=== PATIENT | male | born 1940 | race Caucasian/White ===

== ENCOUNTER 2020-01-24 22:03 | Inpatient (IN) | payer MEDICARE, OTHER ==
[~2020-01-24] VITALS: Ht 165.1 cm; Wt 77.6 kg
[2020-01-24] MEDS ORDERED: CALC0.253 PO (22:24)
[2020-01-24] MEDS ORDERED: FINA5TAB11 PO (22:24)
[2020-01-24] MEDS ORDERED: ASPI-605 PO (22:24)
[2020-01-24] MEDS ORDERED: AMLO2.5T4 PO (22:24)
[2020-01-24] MEDS ORDERED: ISOS10TA2 PO (22:24)
[2020-01-24] MEDS ORDERED: ESOM20CA PO (22:24)
[2020-01-24] MEDS ORDERED: CLONIDINE HCL 0.1 MG TABLET ONE ×2 (22:28→23:11)
[2020-01-24] MEDS ORDERED: CLONIDINE HCL 0.1 MG TABLET PO ONE ×2 (22:30→23:15)
[2020-01-24] MEDS ORDERED: LORAZEPAM 1 MG TABLET ONE (23:24)
[2020-01-24] MEDS ORDERED: LORAZEPAM 0.5 MG TABLET PO ONE (23:30)
[2020-01-25 00:30] VITALS: BP 131/69
[2020-01-25] MEDS ORDERED: LORAZEPAM 0.5 MG TABLET PO PRN (02:15)
[2020-01-25] MEDS ORDERED: MAG HYDROX/AL HYDROX/SIMETH 30 ML LIQUID UDC PO PRN (02:15)
[2020-01-25] MEDS ORDERED: MAGNESIUM HYDROXIDE 30 ML LIQUID UDC PO PRN (02:15)
[2020-01-25 07:14] VITALS: BP 156/77
[2020-01-25] MEDS: PANTOPRAZOLE SODIUM 40 MG TABLET.DR PO SCH (08:09)
[2020-01-25] MEDS: AMLODIPINE 2.5 MG TABLET PO SCH (08:09)
[2020-01-25] MEDS: FINASTERIDE 5 MG TABLET PO SCH (08:09)
[2020-01-25] MEDS: ASPIRIN EC 81 MG TABLET.DR PO SCH (08:09)
[2020-01-25] MEDS: CALCITRIOL 0.25 MCG CAPSULE PO SCH (09:45)
[2020-01-25 10:03] VITALS: BP 144/77
[2020-01-25] MEDS ORDERED: CLONAZEPAM 0.5 MG TABLET PO PRN (12:45)
[2020-01-25] MEDS: FLUOXETINE HCL 20 MG CAPSULE PO SCH (13:27)
[2020-01-25] MEDS: ISOSORBIDE DINITRATE 10 MG TABLET PO SCH ×2 (13:29→22:28)
[2020-01-25 13:36] LABS: *BILIRUBIN,URIN NEGATIVE (NEGATIVE); *BLOOD, URINE NEGATIVE (NEGATIVE); *CLARITY,URINE CLEAR (CLEAR); *COLOR,URINE YELLOW (YELLOW); *KETONES,URINE NEGATIVE (NEGATIVE); *UROBILINOGEN,URINE 0.2 E.U./dl (NORMAL); LEUKOCYTE ESTERASE ,URINE NEGATIVE (NEGATIVE); NITRITE, URINE NEGATIVE (NEGATIVE); PH,URINE 5.5 (5.0-8.0); UGLUCOSE NEGATIVE (NEGATIVE)
[2020-01-25 14:14] LABS: *CREATININE,URINE 241.1 mg/dL (30-125)
[2020-01-25 14:56] VITALS: BP 144/65
[2020-01-25] MEDS: ACETAMINOPHEN 325 MG TABLET PO PRN (16:09)
[2020-01-25 20:00] VITALS: BP 129/74
[2020-01-25] MEDS: MIRTAZAPINE 15 MG TABLET PO SCH (20:41)
[2020-01-25] MEDS: LORAZEPAM 0.5 MG TABLET PO PRN (22:28)
[2020-01-25 22:41] LABS: BACTERIA,URINE RARE /HPF (NONE SEEN); RBC,URINE 0-3 /HPF (0-3)
[2020-01-26 04:00] VITALS: BP 108/54
[2020-01-26 06:33] LABS: BASOPHILS # (AUTO) 0.1 K/uL (0.0-8.0)
[2020-01-26 06:47] LABS: BASOPHILS % (AUTO) 0.8 % (0.0-2.0); EOSINOPHILS # (AUTO) 0.5 K/uL (0.0-0.7); EOSINOPHILS % (AUTO) 5.2 % (0.0-7.0); HEMATOCRIT 34.9 % (36.7-47.1); HEMOGLOBIN 11.8 g/dL (12.5-16.3); LYMPHOCYTES # (AUTO) 2.1 K/uL (20.0-40.0); LYMPHOCYTES % (AUTO) 22.7 % (20.5-51.5); MEAN CORPUSCULAR HEMOGLOBIN 30.9 uug (23.8-33.4); MEAN CORPUSCULAR HGB CONC 34 g/dL (32.5-36.3); MEAN CORPUSCULAR VOLUME 91.2 fL (73.0-96.2); MONOCYTES # (AUTO) 0.7 K/uL (2.0-10.0); MONOCYTES % (AUTO) 7.6 % (0.0-11.0); NEUTROPHILS # (AUTO) 5.9 K/uL (1.8-8.9); NEUTROPHILS % (AUTO) 63.7 % (38.5-71.5); PLATELET COUNT (AUTO) 210 K/uL (152-348); RED BLOOD CELL COUNT(AUTO) 3.82 MIL/uL (4.06-5.63); WHITE BLOOD COUNT (AUTO) 9.3 K/uL (3.6-10.2)
[2020-01-26] MEDS: ISOSORBIDE DINITRATE 10 MG TABLET PO SCH ×3 (06:48→20:50)
[2020-01-26 07:00] LABS: CHOLESTEROL 142 mg/dL (<200); HDL CHOLESTEROL 25 mg/dL (40-60); TRIGLYCERIDES 167 MG/DL (30-150)
[2020-01-26 07:03] LABS: THYROID STIMULATING HORMONE 2.959 mIU/mL (0.358-3.740)
[2020-01-26 07:05] LABS: ALANINE AMINOTRANSFERASE 30 U/L (16-63); ALKALINE PHOSPHATASE 75 U/L (50-136); ASPARTATE AMINOTRANSFERASE 18 U/L (15-37); BILIRUBIN,TOTAL 0.3 mg/dL (0.2-1.0); CARBON DIOXIDE 28 mmol/L (21-32); CHLORIDE 107 mmol/L (98-107); CREATINE KINASE, TOTAL 111 U/L (39-308); CREATININE 2.2 mg/dL (0.6-1.3); GLUCOSE 102 mg/dL (74-106); MAGNESIUM 2.3 mg/dL (1.8-2.4); POTASSIUM 4.2 mmol/L (3.5-5.1); TOTAL PROTEIN, SERUM 6.6 g/dL (6.4-8.2); UREA NITROGEN, BLOOD 30 mg/dL (7-18)
[2020-01-26] MEDS: FINASTERIDE 5 MG TABLET PO SCH (08:27)
[2020-01-26] MEDS: PANTOPRAZOLE SODIUM 40 MG TABLET.DR PO SCH (08:27)
[2020-01-26] MEDS: ASPIRIN EC 81 MG TABLET.DR PO SCH (08:27)
[2020-01-26] MEDS: AMLODIPINE 2.5 MG TABLET PO SCH (09:36)
[2020-01-26 13:00] VITALS: BP 145/75
[2020-01-26] MEDS: FLUOXETINE HCL 20 MG CAPSULE PO SCH (13:17)
[2020-01-26 16:00] VITALS: BP 145/75
[2020-01-26] MEDS ORDERED: FLUOXETINE HCL 20 MG CAPSULE PO SCH (17:00)
[2020-01-26 20:00] VITALS: BP 156/80
[2020-01-26] MEDS: MIRTAZAPINE 15 MG TABLET PO SCH (20:49)
[2020-01-26] MEDS: ATORVASTATIN 10 MG TABLET PO SCH (20:50)
[2020-01-27] MEDS: PANTOPRAZOLE SODIUM 40 MG TABLET.DR PO SCH (06:08)
[2020-01-27] MEDS: ISOSORBIDE DINITRATE 10 MG TABLET PO SCH ×4 (06:19→21:26)
[2020-01-27] MEDS: LORAZEPAM 0.5 MG TABLET PO PRN ×2 (06:36→22:46)
[2020-01-27 06:39] LABS: BASOPHILS # (AUTO) 0.1 K/uL (0.0-8.0); BASOPHILS % (AUTO) 0.9 % (0.0-2.0); EOSINOPHILS # (AUTO) 0.4 K/uL (0.0-0.7); EOSINOPHILS % (AUTO) 4.8 % (0.0-7.0); HEMATOCRIT 35.3 % (36.7-47.1); HEMOGLOBIN 12.1 g/dL (12.5-16.3); LYMPHOCYTES # (AUTO) 1.6 K/uL (20.0-40.0); LYMPHOCYTES % (AUTO) 18.9 % (20.5-51.5); MEAN CORPUSCULAR HEMOGLOBIN 31.3 uug (23.8-33.4); MEAN CORPUSCULAR HGB CONC 34 g/dL (32.5-36.3); MEAN CORPUSCULAR VOLUME 91.6 fL (73.0-96.2); MONOCYTES # (AUTO) 0.6 K/uL (2.0-10.0); NEUTROPHILS # (AUTO) 5.8 K/uL (1.8-8.9); NEUTROPHILS % (AUTO) 68.4 % (38.5-71.5); PLATELET COUNT (AUTO) 224 K/uL (152-348); RED BLOOD CELL COUNT(AUTO) 3.86 MIL/uL (4.06-5.63); WHITE BLOOD COUNT (AUTO) 8.5 K/uL (3.6-10.2)
[2020-01-27 06:58] LABS: ALANINE AMINOTRANSFERASE 31 U/L (16-63); ALKALINE PHOSPHATASE 93 U/L (50-136); ASPARTATE AMINOTRANSFERASE 20 U/L (15-37); BILIRUBIN,TOTAL 0.4 mg/dL (0.2-1.0); CARBON DIOXIDE 27 mmol/L (21-32); CHLORIDE 107 mmol/L (98-107); GLUCOSE 108 mg/dL (74-106); MAGNESIUM 2.1 mg/dL (1.8-2.4); PHOSPHOROUS 3.6 mg/dL (2.5-4.9); POTASSIUM 4.2 mmol/L (3.5-5.1); TOTAL PROTEIN, SERUM 6.6 g/dL (6.4-8.2); UREA NITROGEN, BLOOD 23 mg/dL (7-18)
[2020-01-27 07:30] VITALS: BP 126/75
[2020-01-27] MEDS: FINASTERIDE 5 MG TABLET PO SCH (08:18)
[2020-01-27] MEDS: AMLODIPINE 2.5 MG TABLET PO SCH (08:18)
[2020-01-27] MEDS: ASPIRIN EC 81 MG TABLET.DR PO SCH (08:18)
[2020-01-27] MEDS: FLUOXETINE HCL 20 MG CAPSULE PO SCH (12:15)
[2020-01-27 15:43] VITALS: BP 152/79
[2020-01-27] MEDS: ACETAMINOPHEN 325 MG TABLET PO PRN ×2 (17:56→23:42)
[2020-01-27 20:59] VITALS: BP 159/86
[2020-01-27] MEDS: MIRTAZAPINE 15 MG TABLET PO SCH (21:25)
[2020-01-27] MEDS: ATORVASTATIN 10 MG TABLET PO SCH (21:26)
[2020-01-27] MEDS: TEMAZEPAM 7.5 MG CAPSULE PO PRN (21:26)
[2020-01-28 06:20] VITALS: BP 181/84
[2020-01-28] MEDS: ISOSORBIDE DINITRATE 10 MG TABLET PO SCH ×3 (06:24→22:04)
[2020-01-28] MEDS: PANTOPRAZOLE SODIUM 40 MG TABLET.DR PO SCH (06:24)
[2020-01-28 07:30] VITALS: BP 119/71
[2020-01-28 08:00] VITALS: BP 119/71
[2020-01-28] MEDS: ASPIRIN EC 81 MG TABLET.DR PO SCH (09:54)
[2020-01-28] MEDS: FINASTERIDE 5 MG TABLET PO SCH (09:54)
[2020-01-28] MEDS: AMLODIPINE 2.5 MG TABLET PO SCH (09:55)
[2020-01-28 14:34] VITALS: BP 186/94
[2020-01-28] MEDS: FLUOXETINE HCL 20 MG CAPSULE PO SCH (14:34)
[2020-01-28 16:00] VITALS: BP 147/89
[2020-01-28] MEDS: CLONIDINE HCL 0.1 MG TABLET PO PRN (19:50)
[2020-01-28] MEDS: LORAZEPAM 0.5 MG TABLET PO PRN (19:58)
[2020-01-28] MEDS: MIRTAZAPINE 15 MG TABLET PO SCH (20:13)
[2020-01-28] MEDS: ATORVASTATIN 10 MG TABLET PO SCH (20:14)
[2020-01-28] MEDS: TEMAZEPAM 7.5 MG CAPSULE PO PRN (20:59)
[2020-01-28 21:10] VITALS: BP 168/71
[2020-01-29] MEDS: ISOSORBIDE DINITRATE 10 MG TABLET PO SCH ×3 (06:15→21:15)
[2020-01-29] MEDS: PANTOPRAZOLE SODIUM 40 MG TABLET.DR PO SCH (06:15)
[2020-01-29 07:30] VITALS: BP 116/67
[2020-01-29] MEDS: ASPIRIN EC 81 MG TABLET.DR PO SCH (09:33)
[2020-01-29] MEDS: FINASTERIDE 5 MG TABLET PO SCH (09:33)
[2020-01-29] MEDS: AMLODIPINE 2.5 MG TABLET PO SCH (09:34)
[2020-01-29] MEDS: FLUOXETINE HCL 20 MG CAPSULE PO SCH (12:18)
[2020-01-29 15:55] VITALS: BP 150/83
[2020-01-29] MEDS: LORAZEPAM 0.5 MG TABLET PO PRN (19:50)
[2020-01-29] MEDS: CLONIDINE HCL 0.1 MG TABLET PO PRN (19:53)
[2020-01-29] MEDS: ATORVASTATIN 10 MG TABLET PO SCH (20:10)
[2020-01-29] MEDS: MIRTAZAPINE 15 MG TABLET PO SCH (20:10)
[2020-01-29 20:45] VITALS: BP 199/101
[2020-01-29] MEDS ORDERED: MIRTAZAPINE 15 MG TABLET PO SCH (21:00)
[2020-01-29] MEDS: TEMAZEPAM 7.5 MG CAPSULE PO PRN (21:16)
[2020-01-30] MEDS: LORAZEPAM 0.5 MG TABLET PO PRN ×3 (04:59→19:44)
[2020-01-30] MEDS: ISOSORBIDE DINITRATE 10 MG TABLET PO SCH ×3 (05:01→22:15)
[2020-01-30] MEDS: PANTOPRAZOLE SODIUM 40 MG TABLET.DR PO SCH (06:00)
[2020-01-30 06:45] LABS: BASOPHILS # (AUTO) 0.1 K/uL (0.0-8.0); EOSINOPHILS # (AUTO) 0.3 K/uL (0.0-0.7); EOSINOPHILS % (AUTO) 3.6 % (0.0-7.0); HEMATOCRIT 35.5 % (36.7-47.1); LYMPHOCYTES # (AUTO) 1.6 K/uL (20.0-40.0); LYMPHOCYTES % (AUTO) 19.1 % (20.5-51.5); MEAN CORPUSCULAR HEMOGLOBIN 31.1 uug (23.8-33.4); MEAN CORPUSCULAR HGB CONC 34 g/dL (32.5-36.3); MEAN CORPUSCULAR VOLUME 91.8 fL (73.0-96.2); MONOCYTES # (AUTO) 0.6 K/uL (2.0-10.0); MONOCYTES % (AUTO) 7.2 % (0.0-11.0); NEUTROPHILS # (AUTO) 5.7 K/uL (1.8-8.9); NEUTROPHILS % (AUTO) 69.1 % (38.5-71.5); PLATELET COUNT (AUTO) 275 K/uL (152-348); RED BLOOD CELL COUNT(AUTO) 3.87 MIL/uL (4.06-5.63); WHITE BLOOD COUNT (AUTO) 8.3 K/uL (3.6-10.2)
[2020-01-30 07:01] LABS: ALANINE AMINOTRANSFERASE 36 U/L (16-63); ALKALINE PHOSPHATASE 94 U/L (50-136); ASPARTATE AMINOTRANSFERASE 22 U/L (15-37); BILIRUBIN,TOTAL 0.5 mg/dL (0.2-1.0); CARBON DIOXIDE 26 mmol/L (21-32); CHLORIDE 108 mmol/L (98-107); CREATININE 1.9 mg/dL (0.6-1.3); GLUCOSE 110 mg/dL (74-106); MAGNESIUM 2.2 mg/dL (1.8-2.4); PHOSPHOROUS 3.2 mg/dL (2.5-4.9); TOTAL PROTEIN, SERUM 6.6 g/dL (6.4-8.2); UREA NITROGEN, BLOOD 20 mg/dL (7-18)
[2020-01-30 07:08] LABS: A/G RATIO 1.2 (0.7-1.7); ALBUMIN 3.2 g/dL (2.9-4.4); ALPHA-1-GLOBULIN 0.2 g/dL (0.0-0.4); BETA GLOBULIN 0.8 g/dL (0.7-1.3); GAMMA GLOBULIN 0.6 g/dL (0.4-1.8); GLOBULIN, TOTAL 2.6 g/dL (2.2-3.9); M-SPIKE Not Observed g/dL (Not Observed)
[2020-01-30 07:30] VITALS: BP 136/58
[2020-01-30] MEDS: MEGESTROL ACETATE 20 MG TABLET PO SCH ×2 (08:43→16:51)
[2020-01-30] MEDS: ASPIRIN EC 81 MG TABLET.DR PO SCH (08:44)
[2020-01-30] MEDS: CALCITRIOL 0.25 MCG CAPSULE PO SCH (08:44)
[2020-01-30] MEDS: FINASTERIDE 5 MG TABLET PO SCH (08:44)
[2020-01-30] MEDS: AMLODIPINE 2.5 MG TABLET PO SCH (08:44)
[2020-01-30] MEDS ORDERED: FLUOXETINE HCL 20 MG CAPSULE PO SCH (13:00)
[2020-01-30 15:47] VITALS: BP 126/80
[2020-01-30] MEDS ORDERED: FLUOXETINE HCL 20 MG CAPSULE PO ONE (17:15)
[2020-01-30] MEDS: CLONIDINE HCL 0.1 MG TABLET PO PRN (19:50)
[2020-01-30] MEDS: ATORVASTATIN 10 MG TABLET PO SCH (20:25)
[2020-01-30] MEDS: MIRTAZAPINE 15 MG TABLET PO SCH (20:25)
[2020-01-30 20:36] VITALS: BP 193/85
[2020-01-30] MEDS: TEMAZEPAM 7.5 MG CAPSULE PO PRN (21:04)
[2020-01-31] MEDS: ISOSORBIDE DINITRATE 10 MG TABLET PO SCH ×3 (05:37→21:16)
[2020-01-31] MEDS: PANTOPRAZOLE SODIUM 40 MG TABLET.DR PO SCH (06:54)
[2020-01-31 08:02] VITALS: BP 162/83
[2020-01-31] MEDS: ASPIRIN EC 81 MG TABLET.DR PO SCH (08:09)
[2020-01-31] MEDS: FINASTERIDE 5 MG TABLET PO SCH (08:09)
[2020-01-31] MEDS: CLONIDINE HCL 0.1 MG TABLET PO PRN ×2 (08:10→20:13)
[2020-01-31] MEDS: MEGESTROL ACETATE 20 MG TABLET PO SCH ×2 (08:10→16:50)
[2020-01-31] MEDS: LORAZEPAM 0.5 MG TABLET PO PRN (08:10)
[2020-01-31] MEDS: CALCITRIOL 0.25 MCG CAPSULE PO SCH (08:10)
[2020-01-31] MEDS: AMLODIPINE 2.5 MG TABLET PO SCH (08:10)
[2020-01-31] MEDS: FLUOXETINE HCL 20 MG CAPSULE PO SCH (12:40)
[2020-01-31] MEDS: ARIPIPRAZOLE 2 MG TABLET PO SCH ×2 (13:03→17:42)
[2020-01-31 15:50] VITALS: BP 148/82
[2020-01-31] MEDS: ATORVASTATIN 10 MG TABLET PO SCH (20:13)
[2020-01-31] MEDS: MIRTAZAPINE 15 MG TABLET PO SCH (20:13)
[2020-01-31 20:30] VITALS: BP 182/83
[2020-01-31 21:10] VITALS: BP 182/87
[2020-01-31] MEDS: TEMAZEPAM 7.5 MG CAPSULE PO PRN (21:16)
[2020-01-31 21:46] VITALS: BP 121/62
[2020-02-01 06:00] VITALS: BP 180/92
[2020-02-01] MEDS: ISOSORBIDE DINITRATE 10 MG TABLET PO SCH ×3 (06:01→21:16)
[2020-02-01] MEDS: PANTOPRAZOLE SODIUM 40 MG TABLET.DR PO SCH (06:02)
[2020-02-01 06:41] VITALS: BP 150/76
[2020-02-01 07:30] VITALS: BP 134/68
[2020-02-01] MEDS: ARIPIPRAZOLE 2 MG TABLET PO SCH ×2 (08:20→16:02)
[2020-02-01] MEDS: ASPIRIN EC 81 MG TABLET.DR PO SCH (08:20)
[2020-02-01] MEDS: CALCITRIOL 0.25 MCG CAPSULE PO SCH (08:20)
[2020-02-01] MEDS: AMLODIPINE 2.5 MG TABLET PO SCH (08:20)
[2020-02-01] MEDS: FINASTERIDE 5 MG TABLET PO SCH (08:21)
[2020-02-01] MEDS: MEGESTROL ACETATE 20 MG TABLET PO SCH ×2 (08:21→16:02)
[2020-02-01] MEDS: FLUOXETINE HCL 20 MG CAPSULE PO SCH (12:10)
[2020-02-01 16:00] VITALS: BP 165/76
[2020-02-01] MEDS: CLONIDINE HCL 0.1 MG TABLET PO PRN (16:03)
[2020-02-01] MEDS ORDERED: ARIPIPRAZOLE 2 MG TABLET PO SCH (20:00)
[2020-02-01 20:48] VITALS: BP 143/59
[2020-02-01] MEDS: MIRTAZAPINE 15 MG TABLET PO SCH (21:15)
[2020-02-01] MEDS: ATORVASTATIN 10 MG TABLET PO SCH (21:15)
[2020-02-01] MEDS: TEMAZEPAM 7.5 MG CAPSULE PO PRN (21:16)
[2020-02-02] MEDS: PANTOPRAZOLE SODIUM 40 MG TABLET.DR PO SCH (06:24)
[2020-02-02] MEDS: ISOSORBIDE DINITRATE 10 MG TABLET PO SCH ×2 (06:25→08:51)
[2020-02-02 07:38] LABS: BASOPHILS % (AUTO) 0.9 % (0.0-2.0); HEMATOCRIT 34.4 % (36.7-47.1); LYMPHOCYTES # (AUTO) 1.8 K/uL (20.0-40.0); LYMPHOCYTES % (AUTO) 18.3 % (20.5-51.5); MEAN CORPUSCULAR HEMOGLOBIN 31.6 uug (23.8-33.4); MEAN CORPUSCULAR HGB CONC 35 g/dL (32.5-36.3); MEAN CORPUSCULAR VOLUME 90.8 fL (73.0-96.2); MONOCYTES % (AUTO) 7.4 % (0.0-11.0); NEUTROPHILS # (AUTO) 6.6 K/uL (1.8-8.9); NEUTROPHILS % (AUTO) 68.4 % (38.5-71.5); PLATELET COUNT (AUTO) 269 K/uL (152-348); RED BLOOD CELL COUNT(AUTO) 3.79 MIL/uL (4.06-5.63); WHITE BLOOD COUNT (AUTO) 9.7 K/uL (3.6-10.2)
[2020-02-02 07:39] LABS: BASOPHILS # (AUTO) 0.1 K/uL (0.0-8.0); EOSINOPHILS # (AUTO) 0.5 K/uL (0.0-0.7); MONOCYTES # (AUTO) 0.7 K/uL (2.0-10.0)
[2020-02-02 07:59] LABS: CARBON DIOXIDE 27 mmol/L (21-32); CHLORIDE 109 mmol/L (98-107); CREATININE 1.7 mg/dL (0.6-1.3); GLUCOSE 117 mg/dL (74-106); PHOSPHOROUS 3.4 mg/dL (2.5-4.9); UREA NITROGEN, BLOOD 27 mg/dL (7-18)
[2020-02-02 08:04] VITALS: BP 146/70
[2020-02-02] MEDS: FINASTERIDE 5 MG TABLET PO SCH (08:50)
[2020-02-02] MEDS: ASPIRIN EC 81 MG TABLET.DR PO SCH (08:51)
[2020-02-02] MEDS: ARIPIPRAZOLE 2 MG TABLET PO SCH (08:51)
[2020-02-02 08:52] VITALS: BP 146/70
[2020-02-02] MEDS: MEGESTROL ACETATE 20 MG TABLET PO SCH (08:52)
[2020-02-02] MEDS: AMLODIPINE 2.5 MG TABLET PO SCH (08:52)
== END 2020-02-02 10:15 | disposition home health service (06) | DRG 885 ==
LOC: ER 22:18 → GPSOV3 01-25 00:42 → GPS 01-26 14:06
PROVIDERS: ADMIT Psychiatry & Neurology Psychosomatic Medicine; ATTEND Nurse Practitioner Acute Care
DX: F33.3 Major depressive disorder, recurrent, severe with psychotic symptoms (principal); N18.9 Chronic kidney disease, unspecified; N17.9 Acute kidney failure, unspecified; J98.11 Atelectasis; E44.1 Mild protein-calorie malnutrition; R45.851 Suicidal ideations; I12.9 Hypertensive chronic kidney disease with stage 1 through stage 4 chronic kidney disease, or unspecified chronic kidney disease; I25.10 Atherosclerotic heart disease of native coronary artery without angina pectoris; Z95.5 Presence of coronary angioplasty implant and graft; D63.8 Anemia in other chronic diseases classified elsewhere; K21.9 Gastro-esophageal reflux disease without esophagitis; N40.1 Benign prostatic hyperplasia with lower urinary tract symptoms; N40.0 Benign prostatic hyperplasia without lower urinary tract symptoms; E88.09 Other disorders of plasma-protein metabolism, not elsewhere classified; Z68.28 Body mass index [BMI] 28.0-28.9, adult; F39 Unspecified mood [affective] disorder
CPT/HCPCS: 36415; 70030-TC; 71045; 76770; 83735; 83970; 84100; 84155; 84156; 84165; 84300; 84443; 85025; 93005; A4663